=== PATIENT | female | born 1970 | race Caucasian/White ===

== ENCOUNTER 2017-10-26 19:09 | Emergency (ER) | payer SELFPAY ==
[2017-10-26] MEDS ORDERED: HYDROCODONE/APAP 10/325 TAB ONE (19:59)
[2017-10-26] MEDS ORDERED: DOXYCYCLINE 100 MG CAP PO ONE (19:59)
[2017-10-26] MEDS ORDERED: SMZ./TMP. 800/160 MG TABLET ONE (19:59)
--- NOTE | 2017-10-26 20:01 | ER ---
Nurse's Notes [facility] Name: Jennifer Caicedo Age: 47 yrs Sex: Female : 1970 Arrival Date: 10/26/2017 Time: 19:13 Bed 14 Private MD: Diagnosis: Insect bite (nonvenomous) of forearm;Insect bite (nonvenomous) of lower leg;Insect bite (nonvenomous) of other part of head Presentation: 10/26 19:20 Presenting complaint: Patient states: She noticed a bug bite yesterday on her right ea eye, right forearm and left upper leg. Pt states "my had a bug bite two days ago that looked similar" Pt reports fever and blurry vision to right eye. Presenting complaint:. Transition of care: patient was not received from another setting of care. Onset of symptoms was October 26, 2017. Risk Assessment: Do you want to hurt yourself or someone else? Patient reports no desire to harm self or others. Initial Sepsis Screen: Does the patient meet any 2 criteria? No. Patient's initial sepsis screen is negative. Does the patient have a suspected source of infection? No. Patient's initial sepsis screen is negative. Care prior to arrival: None. 19:20 Method Of Arrival: Ambulatory ea 19:20 Acuity: SOTO 4 ea Triage Assessment: 19:23 Bite description: bite sustained to right eye, right arm and left leg. General: Appears ea uncomfortable, Behavior is calm, cooperative, appropriate for age. General: pt reports nausea, fever and blurry vision. Pain: Complains of pain in right eye, right arm and left leg Pain currently is 7 out of 10 on a pain scale. GI: Reports nausea. 19:24 Bite description: bite sustained to right cheek, palmar aspect of right forearm and jd3 left quadriceps by a spider, animal information: vaccination(s) is not applicable. 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 - Social history:: Smoking status: Patient uses tobacco products, smokes one pack cigarettes per day. - Ebola Screening: : No symptoms or risks identified at this time. - Family history:: not pertinent. Screenin:25 Abuse screen: Denies threats or abuse. Nutritional screening: No deficits noted. ea Tuberculosis screening: No symptoms or risk factors identified. 20:21 Fall Risk None identified. jd3 Assessment: 19:21 General: Appears uncomfortable, Behavior is cooperative, anxious. Pain: Complains of jd3 pain in right cheek, palmar aspect of right forearm and left quadriceps Quality of pain is described as aching, pressure. Neuro: Level of Consciousness is awake, alert, obeys commands, Oriented to person, place, time, situation, Appropriate for age. Cardiovascular: Heart tones S1 S2 present Capillary refill < 3 seconds Patient's skin is warm and dry. Respiratory: Airway is patent Respiratory effort is even, unlabored, Respiratory pattern is regular, symmetrical, Breath sounds are clear bilaterally. GI: Abdomen is round Bowel sounds present X 4 quads. Abd is soft and non tender X 4 quads. Reports nausea. : No signs and/or symptoms were reported regarding the genitourinary system. EENT: No signs and/or symptoms were reported regarding the EENT system. Derm: Skin is intact, Skin is dry, Skin is normal, Skin temperature is warm. Musculoskeletal: Circulation, motion, and sensation intact. Range of motion: intact in all extremities. Injury Description: Bite sustained to right cheek, palmar aspect of right forearm and left quadriceps caused by a spider, is from insect. 20:20 Reassessment: Patient appears in no apparent distress at this time. Patient and/or jd3 family updated on plan of care and expected duration. Pain level reassessed. Patient is alert, oriented x 3, equal unlabored respirations, skin warm/dry/pink. pt reported understanding of discharge instructions, even and steady gait upon discharge. Vital Signs: 19:25 BP 172 / 105; Pulse 97; Resp 18; Temp 99.7; Pulse Ox 99% on R/A; Weight 72.57 kg; ea Height 5 ft. 7 in. (170.18 cm); Pain 7/10; 19:25 Body Mass Index 25.06 (72.57 kg, 170.18 cm) ea ED Course: 19:13 Patient arrived in ED. am2 19:15 Wayne Bedoya MD is Attending Physician. kirstin 19:21 Jermain Sanders, RN is Primary Nurse. jd3 19:22 Triage completed. ea 19:24 Patient has correct armband on for positive identification. Bed in low position. Call jd3 light in reach. Side rails up X 1. Adult w/ patient. 19:25 Arm band placed on right wrist. Patient placed in an exam room, on a stretcher. ea 20:20 No provider procedures requiring assistance completed. Patient did not have IV access jd3 during this emergency room visit. Administered Medications: 20:00 Drug: Doxycycline 200 mg Route: PO; jd3 20:19 Follow up: Response: Medication administered at discharge. jd3 20:01 Drug: Bactrim (160 mg-800 mg (DS) 1 tablet Route: PO; jd3 20:19 Follow up: Response: Medication administered at discharge. jd3 20:01 Drug: Clarks 10 mg-325 mg 1 tabs Route: PO; jd3 20:19 Follow up: Response: Medication administered at discharge. jd3 Point of Care Testing: Blood Glucose: 19:52 Blood Glucose: 86 mg/dL; jd3 Ranges: Outcome: 20:00 Discharge ordered by . kirstin 20:20 Discharged to home ambulatory, with family. jd3 20:20 Condition: stable 20:20 Discharge instructions given to patient, family, Instructed on discharge instructions, follow up and referral plans. medication usage, Demonstrated understanding of instructions, follow-up care, medications, Prescriptions given X 3. 20:21 Patient left the ED. jd3 Signatures: Wayne Bedoya MD MD cha Moreno, Amanda Isabel Huang RN RN Jermain Greco, RN RN jd3
--- NOTE | 2017-10-26 20:01 | EDPHYS ---
Physician Documentation [facility] Name: Jennifer Caicedo Age: 47 yrs Sex: Female : 1970 Arrival Date: 10/26/2017 Time: 19:13 Bed 14 Private MD: ED Physician Wayne Bedoya HPI: 10/26 19:53 This 47 yrs old Female presents to ER via Ambulatory with complaints of kirstin Insect Bite. 19:53 The patient was bitten on the face, right arm and left leg. Onset: The symptoms/episode kirstin began/occurred 3 day(s) ago. The patient presents with cellulitis of the face, right arm and left leg. Description: The affected area is small, localized, erythematous. Possible cause(s): spider bite. Associated signs and symptoms: Pertinent positives: swelling. 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 - Social history:: Smoking status: Patient uses tobacco products, smokes one pack cigarettes per day. - Ebola Screening: : No symptoms or risks identified at this time. - Family history:: not pertinent. ROS: 19:53 Constitutional: Negative for fever, chills, and weight loss, Eyes: Negative for injury, kirstin pain, redness, and discharge, ENT: Negative for injury, pain, and discharge, Neck: Negative for injury, pain, and swelling, Cardiovascular: Negative for chest pain, palpitations, and edema, Respiratory: Negative for shortness of breath, cough, wheezing, and pleuritic chest pain, Abdomen/GI: Negative for abdominal pain, nausea, vomiting, diarrhea, and constipation, Back: Negative for injury and pain, : Negative for injury, bleeding, discharge, and swelling, MS/Extremity: Negative for injury and deformity, Neuro: Negative for headache, weakness, numbness, tingling, and seizure, Psych: Negative for depression, anxiety, suicide ideation, homicidal ideation, and hallucinations, Allergy/Immunology: Negative for hives, rash, and allergies, Endocrine: Negative for neck swelling, polydipsia, polyuria, polyphagia, and marked weight changes, Hematologic/Lymphatic: Negative for swollen nodes, abnormal bleeding, and unusual bruising. 19:53 Skin: Positive for cellulitis. Exam: 19:53 Constitutional: This is a well developed, well nourished patient who is awake, alert, kirstin and in no acute distress. Head/Face: Normocephalic, atraumatic. Eyes: Pupils equal round and reactive to light, extra-ocular motions intact. Lids and lashes normal. Conjunctiva and sclera are non-icteric and not injected. Cornea within normal limits. Periorbital areas with no swelling, redness, or edema. ENT: Nares patent. No nasal discharge, no septal abnormalities noted. Tympanic membranes are normal and external auditory canals are clear. Oropharynx with no redness, swelling, or masses, exudates, or evidence of obstruction, uvula midline. Mucous membranes moist. Neck: Trachea midline, no thyromegaly or masses palpated, and no cervical lymphadenopathy. Supple, full range of motion without nuchal rigidity, or vertebral point tenderness. No Meningismus. Chest/axilla: Normal chest wall appearance and motion. Nontender with no deformity. No lesions are appreciated. Cardiovascular: Regular rate and rhythm with a normal S1 and S2. No gallops, murmurs, or rubs. Normal PMI, no JVD. No pulse deficits. Respiratory: Lungs have equal breath sounds bilaterally, clear to auscultation and percussion. No rales, rhonchi or wheezes noted. No increased work of breathing, no retractions or nasal flaring. Abdomen/GI: Soft, non-tender, with normal bowel sounds. No distension or tympany. No guarding or rebound. No evidence of tenderness throughout. Back: No spinal tenderness. No costovertebral tenderness. Full range of motion. Female : Normal external genitalia. MS/ Extremity: Pulses equal, no cyanosis. Neurovascular intact. Full, normal range of motion. Neuro: Awake and alert, GCS 15, oriented to person, place, time, and situation. Cranial nerves II-XII grossly intact. Motor strength 5/5 in all extremities. Sensory grossly intact. Cerebellar exam normal. Normal gait. Psych: Awake, alert, with orientation to person, place and time. Behavior, mood, and affect are within normal limits. 19:53 Skin: cellulitis, injury. Vital Signs: 19:25 BP 172 / 105; Pulse 97; Resp 18; Temp 99.7; Pulse Ox 99% on R/A; Weight 72.57 kg; ea Height 5 ft. 7 in. (170.18 cm); Pain 7/10; 19:25 Body Mass Index 25.06 (72.57 kg, 170.18 cm) ea MDM: 19:15 Patient medically screened. [facility] 19:53 Data reviewed: vital signs, nurses notes, lab test result(s). [facility] 10/26 19:53 Order name: Blood Glucose Level; Complete Time: :53 [facility] Administered Medications: 20:00 Drug: Doxycycline 200 mg Route: PO; jd3 20:19 Follow up: Response: Medication administered at discharge. jd3 20:01 Drug: Bactrim (160 mg-800 mg (DS) 1 tablet Route: PO; jd3 20:19 Follow up: Response: Medication administered at discharge. jd3 20:01 Drug: Aurora 10 mg-325 mg 1 tabs Route: PO; jd3 20:19 Follow up: Response: Medication administered at discharge. jd3 Point of Care Testing: Blood Glucose: 19:52 Blood Glucose: 86 mg/dL; jd3 Ranges: Critical Glucose Levels:Adult <50 mg/dl or >400 mg/dl <40 mg/dl or >180 mg/dl Disposition: 10/26/17 20:00 Discharged to Home. Impression: Insect bite (nonvenomous) of forearm, Insect bite (nonvenomous) of lower leg, Insect bite (nonvenomous) of other part of head. - Condition is Stable. - Discharge Instructions: Insect Bite, [id number], Insect Bite, Cellulitis, Cellulitis, [id number]. - Prescriptions for Benadryl 25 mg Oral Capsule - take 1 capsule by ORAL route every 6 hours As needed; 30 tablet. Doxycycline Hyclate 100 mg Oral Tablet - take 1 tablet by ORAL route every 12 hours; 20 tablet. Bactrim DS 800- 160 mg Oral Tablet - take 1 tablet by ORAL route every 12 hours for 10 days; 20 tablet. - Medication Reconciliation Form, Thank You Letter, Antibiotic Education, Prescription Opioid Use form. - Follow up: Private Physician; When: 2 - 3 days; Reason: Recheck today's complaints, Continuance of care, Re-evaluation by your physician. - Problem is new. - Symptoms have improved. Signatures: Wayne Bedoya MD MD cha Antunez, Elena RN Jermain Carroll ea, RN RN jd3 Corrections: (The following items were deleted from the chart) 20:21 20:00 10/26/2017 20:00 Discharged to Home. Impression: Insect bite (nonvenomous) of jd3 forearm; Insect bite (nonvenomous) of lower leg; Insect bite (nonvenomous) of other part of head. Condition is Stable. Forms are Medication Reconciliation Form, Thank You Letter, Antibiotic Education, Prescription Opioid Use. Follow up: Private Physician; When: 2 - 3 days; Reason: Recheck today's complaints, Continuance of care, Re-evaluation by your physician. Problem is new. Symptoms have improved. kirstin
== END 2017-10-26 20:21 | disposition home or self-care (01) ==
LOC: ER 19:09
DX: S50.861A Insect bite (nonvenomous) of right forearm, initial encounter (principal); S00.86XA Insect bite (nonvenomous) of other part of head, initial encounter; S80.862A Insect bite (nonvenomous), left lower leg, initial encounter; F17.210 Nicotine dependence, cigarettes, uncomplicated; W57.XXXA Bitten or stung by nonvenomous insect and other nonvenomous arthropods, initial encounter; Y93.9 Activity, unspecified; Y92.9 Unspecified place or not applicable; Y99.9 Unspecified external cause status
CPT/HCPCS: 82962; 99283

== ENCOUNTER 2019-01-09 22:51 | Emergency (ER) | payer SELFPAY ==
[2019-01-09 23:13] LABS: Absolute Lymphocytes (CBC) 3.1 K/uL (0.7-4.9); Basophils % 0.6 % (0-1.3); Hematocrit 36.7 % (36.0-45.0); MPV 8.4 fL (7.6-11.3)
[2019-01-09 23:30] LABS: ALT/SGPT 20 U/L (12-78); AST/SGOT 9 U/L (15-37); Albumin 3.3 g/dL (3.4-5.0); Alkaline Phosphatase 87 U/L (45-117); BUN Blood Urea Nitrogen 18 mg/dL (7-18); Bicarbonate 25 mmol/L (21-32); Bilirubin Direct < 0.1 mg/dL (0-0.2); Bilirubin Total 0.2 mg/dL (0.2-1.0); Glucose Level 131 mg/dL (74-106); Lipase 283 U/L (73-393); Potassium 3.5 mmol/L (3.5-5.1); Protein, Total 6.5 g/dL (6.4-8.2); Sodium Level 144 mmol/L (136-145)
[2019-01-09] MEDS ORDERED: HYDROCODONE/APAP 5/325 MG TAB ONE (23:35)
[2019-01-10 00:05] LABS: Urine Culture Reflex Order REFLEXED
--- NOTE | 2019-01-10 00:08 | ER ---
Nurse's Notes [facility] Name: Jennifer Caicedo Age: 48 yrs Sex: Female : 1970 Arrival Date: 01/09/2019 Time: 22:54 Bed 13 Private MD: Diagnosis: Upper abdominal pain, unspecified;Urinary tract infection, site not specified Presentation: 01/09 22:55 Presenting complaint: EMS states: complaints of LUQ pain started 3 days ago like a rr5 sharp stabbing pain. she feels her stomach is distended. 22:55 Transition of care: patient was not received from another setting of care. Onset of rr5 symptoms was January 06, 2019. Risk Assessment: Do you want to hurt yourself or someone else? Patient reports no desire to harm self or others. Initial Sepsis Screen: Does the patient meet any 2 criteria? No. Patient's initial sepsis screen is negative. Does the patient have a suspected source of infection? No. Patient's initial sepsis screen is negative. Care prior to arrival: None. 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 - Social history:: Smoking status: Patient uses tobacco products, smokes one-half pack cigarettes per day, Patient/guardian denies using alcohol, street drugs. - Family history:: not pertinent. - Ebola Screening: : Patient negative for fever greater than or equal to 101.5 degrees Fahrenheit, and additional compatible Ebola Virus Disease symptoms Patient denies exposure to infectious person Patient denies travel to an Ebola-affected area in the 21 days before illness onset. - Hospitalizations: : No recent hospitalization is reported. Screenin:30 Abuse screen: Denies threats or abuse. Denies injuries from another. Nutritional rr5 screening: No deficits noted. Tuberculosis screening: No symptoms or risk factors identified. Fall Risk IV access (20 points). Total Gonzalez Fall Scale indicates No Risk (0-24 pts). Assessment: 23:00 General: Appears in no apparent distress. uncomfortable, Behavior is calm, cooperative, rr5 appropriate for age. 23:00 Pain: Complains of pain in left upper quadrant Pain does not radiate. Pain currently is rr5 10 out of 10 on a pain scale. Quality of pain is described as sharp, stabbing, Pain began gradually, 2-3 days ago. Is intermittent. Neuro: Level of Consciousness is awake, alert, obeys commands, Oriented to person, place, time, situation, Appropriate for age. Cardiovascular: Capillary refill < 3 seconds Patient's skin is warm and dry. Respiratory: Airway is patent Respiratory effort is even, unlabored, Respiratory pattern is regular, symmetrical. GI: Abdomen is round Bowel sounds present X 4 quads. Abd is soft and non tender Reports upper abdominal pain. : No signs and/or symptoms were reported regarding the genitourinary system. EENT: No signs and/or symptoms were reported regarding the EENT system. Derm: Skin Skin temperature is warm. Musculoskeletal: Circulation, motion, and sensation intact. Capillary refill < 3 seconds. 01/10 00:00 Reassessment: Patient appears in no apparent distress at this time. Patient is alert, rr5 oriented x 3, equal unlabored respirations, skin warm/dry/pink. Patient states feeling better. Patient states symptoms have improved. 00:25 Reassessment: Patient appears in no apparent distress at this time. Patient is alert, rr5 oriented x 3, equal unlabored respirations, skin warm/dry/pink. discharge instruction given and explained without complaints made, verbalized understandiung. escorted by SELAM. Vital Signs: 01/09 22:58 BP 144 / 97; Pulse 93; Resp 17; Temp 98.7; Pulse Ox 100% ; Weight 74.84 kg; Height 5 rr5 ft. 7 in. (170.18 cm); Pain 10/10; 23:53 BP 149 / 94; Pulse 89; Resp 16; Pulse Ox 99% on R/A; mt 01/10 00:20 BP 125 / 85; Pulse 80; Resp 17; Temp 98.1; Pulse Ox 100% ; Pain 5/10; rr5 01/09 22:58 Body Mass Index 25.84 (74.84 kg, 170.18 cm) rr5 ED Course: 01/09 22:54 Patient arrived in ED. rn 22:54 Ankur Aguirre MD is Attending Physician. rn 22:55 Piotr Lopez, CLAYTON is Primary Nurse. rr5 22:58 Triage completed. rr5 23:00 Patient has correct armband on for positive identification. Bed in low position. Call rr5 light in reach. 23:00 Pulse ox on. NIBP on. rr5 23:01 Inserted saline lock: 22 gauge in right antecubital area, using aseptic technique. or Blood collected. 23:02 Arm band placed on left wrist. rr5 23:09 EKG done, by ED staff, reviewed by Ankur Aguirre MD. or 23:30 No provider procedures requiring assistance completed. rr5 01/10 00:25 IV discontinued, intact, bleeding controlled, No redness/swelling at site. Pressure rr5 dressing applied. Administered Medications: 01/09 23:30 Drug: Milburn 5 mg-325 mg 2 tabs {Note: rass 0.} Route: PO; rr5 01/10 00:27 Follow up: Response: No adverse reaction; Pain is decreased; RASS: Alert and Calm (0) rr5 00:10 Drug: Nitrofurantoin 100 mg Route: PO; rr5 00:26 Follow up: Response: Medication administered at discharge. rr5 Outcome: 00:06 Discharge ordered by . rn 00:25 Discharged to Law Enforcement rr5 00:25 Condition: stable 00:25 Discharge instructions given to patient, Instructed on discharge instructions, follow up and referral plans. medication usage, Demonstrated understanding of instructions, follow-up care, medications, Prescriptions given X 1. 00:27 Patient left the ED. rr5 Addendum: 01/13/2019 07:36 Addendum: Culture Results: Positive urine culture. No further action required. Bacteria s s sensitive to prescribed antibiotic. Signatures: Ankur Aguirre MD MD rn Smirch, Shelby, RN RN ss [facility] Piotr Lopez, CLAYTON RN rr5
[2019-01-10 00:09] LABS: Urine Blood NEGATIVE (NEG); Urine Glucose NEGATIVE (NEG); Urine Protein NEGATIVE (NEG); Urine Specific Gravity 1.025 (1.005-1.030)
--- NOTE | 2019-01-10 00:09 | EDPHYS ---
Physician Documentation [facility] Name: Jennifer Caicedo Age: 48 yrs Sex: Female : 1970 Arrival Date: 01/09/2019 Time: 22:54 Bed 13 Private MD: ED Physician Ankur Aguirre HPI: 01/09 22:55 This 48 yrs old Female presents to ER via Unassigned with complaints of LUQ rn abd pain. 22:55 The patient presents with abdominal pain in the left upper quadrant. Onset: The rn symptoms/episode began/occurred 3 day(s) ago. The symptoms do not radiate. Associated signs and symptoms: none. Pertinent negatives: nausea and vomiting, anorexia, blood in stools, constipation, diarrhea, dysuria, fever, hematuria, shortness of breath, vomiting. Modifying factors: The symptoms are alleviated by nothing, the symptoms are aggravated by touching the area. Severity of pain: At its worst the pain was mild in the emergency department the pain is unchanged. The patient has not experienced similar symptoms in the past. Reports 3 days of LUQ abd pain, came in today after arrested, states pain got worse and that is why she sought care, no chest pain/sob/cough/palpitations/vomiting/diarrhea. . 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 - Social history:: Smoking status: Patient uses tobacco products, smokes one-half pack cigarettes per day, Patient/guardian denies using alcohol, street drugs. - Family history:: not pertinent. - Ebola Screening: : Patient negative for fever greater than or equal to 101.5 degrees Fahrenheit, and additional compatible Ebola Virus Disease symptoms Patient denies exposure to infectious person Patient denies travel to an Ebola-affected area in the 21 days before illness onset. - Hospitalizations: : No recent hospitalization is reported. ROS: 22:55 Constitutional: Negative for fever, chills, and weight loss, Eyes: Negative for injury, rn pain, redness, and discharge, Neck: Negative for injury, pain, and swelling, Cardiovascular: Negative for chest pain, palpitations, and edema, Respiratory: Negative for shortness of breath, cough, wheezing, and pleuritic chest pain, Abdomen/GI: Negative for nausea, vomiting, diarrhea, and constipation, Back: Negative for injury and pain, : Negative for injury, bleeding, discharge, and swelling, MS/Extremity: Negative for injury and deformity, Skin: Negative for injury, rash, and discoloration, Neuro: Negative for headache, weakness, numbness, tingling, and seizure. Exam: 22:55 Constitutional: This is a well developed, well nourished patient who is awake, alert, rn and in no acute distress. Head/Face: Normocephalic, atraumatic. ENT: MMM Cardiovascular: Regular rate and rhythm. No pulse deficits. Respiratory: Lungs have equal breath sounds bilaterally, clear to auscultation. No increased work of breathing, no retractions or nasal flaring. Abdomen/GI: Soft, + LUQ tenderness, no rebound MS/ Extremity: Pulses equal, no cyanosis. Neurovascular intact. Full, normal range of motion. Equal circumference. Neuro: Awake and alert, GCS 15, oriented to person, place, time, and situation. Cranial nerves II-XII grossly intact. Motor strength 5/5 in all extremities. Sensory grossly intact. Cerebellar exam normal. Able to walk from stretcher to bed. Vital Signs: 22:58 BP 144 / 97; Pulse 93; Resp 17; Temp 98.7; Pulse Ox 100% ; Weight 74.84 kg; Height 5 rr5 ft. 7 in. (170.18 cm); Pain 10/10; 23:53 BP 149 / 94; Pulse 89; Resp 16; Pulse Ox 99% on R/A; mt 01/10 00:20 BP 125 / 85; Pulse 80; Resp 17; Temp 98.1; Pulse Ox 100% ; Pain 5/10; rr5 01/09 22:58 Body Mass Index 25.84 (74.84 kg, 170.18 cm) rr5 MDM: 01/09 22:54 Patient medically screened. rn 01/10 00:04 Differential diagnosis: gastritis, gastroesophageal reflux disease, non-specific abd rn pain, pancreatitis, Peptic Ulcer Disease, Pyelonephritis, urinary tract infection. Data reviewed: vital signs, nurses notes, lab test result(s), and as a result, I will discharge patient. Counseling: I had a detailed discussion with the patient and/or guardian regarding: the historical points, exam findings, and any diagnostic results supporting the discharge/admit diagnosis, lab results, the need for outpatient follow up, to return to the emergency department if symptoms worsen or persist or if there are any questions or concerns that arise at home. Special discussion: I discussed with the patient/guardian in detail that at this point there is no indication for admission to the hospital. It is understood, however, that if the symptoms persist or worsen the patient needs to return immediately for re-evaluation. 01/09 22:54 Order name: Basic Metabolic Panel; Complete Time: 23:44 01/09 22:54 Order name: CBC with Diff; Complete Time: : 01/09 22:54 Order name: Hepatic Function; Complete Time: 23:44 01/09 22:54 Order name: Lipase; Complete Time: 23: 01/09 22:54 Order name: Urine Microscopic Only 01/09 23:30 Order name: Urine Dipstick--Ancillary (enter results) [facility] 01/09 23:30 Order name: Urine --Ancillary (enter results) [facility] 01/10 00:24 Order name: Urine Culture [facility] 01/09 22:55 Order name: EKG; Complete Time: 22:56 01/09 22:54 Order name: IV Saline Lock; Complete Time: 23: 01/09 22:54 Order name: Labs collected and sent; Complete Time: 23: 01/09 22:54 Order name: Urine Test (obtain specimen); Complete Time: 23: 01/09 22:54 Order name: Urine Dipstick-Ancillary (obtain specimen); Complete Time: 23: 01/09 22:55 Order name: EKG - Nurse/Tech; Complete Time: 23:09 rn Administered Medications: 01/09 23:30 Drug: Hutchinson 5 mg-325 mg 2 tabs {Note: rass 0.} Route: PO; rr5 01/10 00:27 Follow up: Response: No adverse reaction; Pain is decreased; RASS: Alert and Calm (0) rr5 00:10 Drug: Nitrofurantoin 100 mg Route: PO; rr5 00:26 Follow up: Response: Medication administered at discharge. rr5 Disposition: 01/10/19 00:06 Discharged to Home. Impression: Upper abdominal pain, unspecified, Urinary tract infection, site not specified. - Condition is Stable. - Discharge Instructions: Abdominal Pain, Adult, Urinary Tract Infection, Adult. - Prescriptions for Macrobid 100 mg Oral Capsule - take 1 capsule by ORAL route every 12 hours for 7 days; 14 capsule. - Medication Reconciliation Form, Thank You Letter, Antibiotic Education, Prescription Opioid Use form. - Follow up: Private Physician; When: As needed; Reason: Recheck today's complaints, Re-evaluation by your physician. - Problem is new. - Symptoms have improved. Signatures: Dispatcher [employer] EDMS Ankur Aguirre MD MD rn Roque, Raymond, RN RN rr5 Corrections: (The following items were deleted from the chart) 00:27 00:06 01/10/2019 00:06 Discharged to Home. Impression: Upper abdominal pain, rr5 unspecified; Urinary tract infection, site not specified. Condition is Stable. Forms are Medication Reconciliation Form, Thank You Letter, Antibiotic Education, Prescription Opioid Use. Follow up: Private Physician; When: As needed; Reason: Recheck today's complaints, Re-evaluation by your physician. Problem is new. Symptoms have improved. rn
[2019-01-10 00:15] LABS: Urine Bacteria LOADED /HPF (<20); Urine RBC NONE SEEN /HPF (NONE SEEN)
[2019-01-10 02:46] VITALS: BP 125/85; TEMP 98.1; O2SAT 100
--- NOTE | 2019-01-10 09:22 | EKG ---
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
== END 2019-01-10 00:27 | disposition home or self-care (01) ==
LOC: ER 22:51
DX: N39.0 Urinary tract infection, site not specified (principal); I95.9 Hypotension, unspecified; F17.210 Nicotine dependence, cigarettes, uncomplicated
CPT/HCPCS: 36415; 80048; 80076; 81003; 81015; 81025; 83690; 85025; 87077; 87086; 87088; 87186; 93005; 99284

== ENCOUNTER 2020-11-30 12:52 | Emergency (ER) | payer OTHER, SELFPAY ==
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
--- NOTE | 2020-11-30 13:24 | EDPHYS ---
Physician Documentation [facility] Name: Jennifer Caicedo Age: 50 yrs Sex: Female : 1970 Arrival Date: 11/30/2020 Time: 12:56 Bed Waiting Private MD: ED Physician Jose Manuel Aguilar HPI: 11/30 13:23 This 50 yrs old Female presents to ER via Ambulatory with complaints of Wasp pm1 sting. 13:23 The patient or guardian reports pain, swelling. Patient presents to the ER with pm1 complaints of swelling to left middle finger due to the presence of a ring and a wasp sting, yellow jacket to her left middle finger. Patient was stung by wasp yesterday.. 13:23 The complaints affect the left middle finger. Context: The problem was sustained pm1 outdoors, resulted from Insect sting. Onset: The symptoms/episode began/occurred yesterday. Modifying factors: The symptoms are alleviated by nothing, the symptoms are aggravated by Presence of ring. Associated signs and symptoms: Pertinent negatives: cyanosis distally, decreased sensation distally, numbness distally, tingling distally. Severity of symptoms: in the emergency department the symptoms are actually worse. The patient has not experienced similar symptoms in the past. The patient has not recently seen a physician. Historical: - Allergies: 13:17 No Known Allergies; ss - PMHx: 13:17 Bipolar disorder; hypotension; ss - Immunization history:: Adult Immunizations up to date. - Social history:: Smoking status: Patient reports the use of cigarette tobacco products, smokes one-half pack cigarettes per day. ROS: 13:23 Constitutional: Negative for fever, chills, and weight loss, Cardiovascular: Negative pm1 for chest pain, palpitations, and edema, Respiratory: Negative for shortness of breath, cough, wheezing, and pleuritic chest pain. 13:23 Neuro: Negative for headache, weakness, numbness, tingling, and seizure. 13:23 MS/extremity: Positive for pain, swelling, of the left middle finger, Negative for decreased range of motion, deformity. 13:23 Skin: Positive for swelling, of the left middle finger and dorsum of left hand. 13:23 All other systems are negative. Exam: 13:23 Constitutional: This is a well developed, well nourished patient who is awake, alert, pm1 and in no acute distress. Head/Face: Normocephalic, atraumatic. 13:23 Eyes: Exam is negative for acute changes, Extraocular movements: no acute changes, Conjunctiva: no acute changes, no injection. 13:23 ENT: Mouth: Lips: normal, Oral mucosa: normal, pink and intact, moist. 13:23 Cardiovascular: Rate: normal, Rhythm: regular, Pulses: no pulse deficits are appreciated. 13:23 Respiratory: Exam negative for acute changes, respiratory distress, shortness of breath. 13:23 Musculoskeletal/extremity: Extremities: grossly normal except: noted in the left middle finger: swelling, There is no evidence of Stinger or foreign body, Circulation is intact in all extremities. the left hand Sensation intact. 13:23 Skin: Appearance: swelling, noted on the dorsum of left hand and left middle finger, that are mild. Vital Signs: 13:02 BP 132 / 89; Pulse 103; Resp 16; Temp 97.9(TE); Pulse Ox 98% on R/A; Weight 62.14 kg; ss Height 5 ft. 7 in. (170.18 cm); Pain 7/10; 13:02 Body Mass Index 21.46 (62.14 kg, 170.18 cm) ss Procedures: 13:19 Performed Ring removed from left middle finger using ring cutters. Patient tolerated pm1 procedure well. Neurovascular status intact pre and post removal of ring. MDM: 13:19 Data reviewed: vital signs. Data interpreted: Pulse oximetry: on room air is 98 %. pm1 Interpretation: normal. Counseling: I had a detailed discussion with the patient and/or guardian regarding: the historical points, exam findings, and any diagnostic results supporting the discharge/admit diagnosis, the need for outpatient follow up, to return to the emergency department if symptoms worsen or persist or if there are any questions or concerns that arise at home. 13:23 Patient medically screened. pm1 Administered Medications: 14:13 Not Given (Pt left prior to recieving medicationn): Benadryl (diphenhydrAMINE) 25 mg PO ss once Disposition: 18:36 Co-signature as Attending Physician, Jose Manuel Aguilar MD I agree with the assessment and tw4 plan of care. Disposition Summary: 11/30/20 13:23 Discharge Ordered Location: Home pm1 Problem: new pm1 Symptoms: have improved pm1 Condition: Stable pm1 Diagnosis - Insect bite (nonvenomous) of hand - Left hand pm1 Followup: pm1 - With: Emergency Department - When: As needed - Reason: Worsening of condition Followup: pm1 - With: Private Physician - When: 2 - 3 days - Reason: Recheck today's complaints, Continuance of care, Re-evaluation by your physician Discharge Instructions: - Discharge Summary Sheet pm1 - Insect Bite, Adult pm1 Forms: - Medication Reconciliation Form pm1 - Thank You Letter pm1 - Antibiotic Education pm1 - Prescription Opioid Use pm1 Signatures: Natalia Solano, RN RN ss Fili Lopes, [employer] AUTOMOTIVE QUALITY ENGINEER pm1 Jose Manuel Aguilar MD MD tw4 Corrections: (The following items were deleted from the chart) 13:46 13:23 This 50 yrs old Female presents to ER via Ambulatory with complaints of pm1 Bee Sting. pm1
--- NOTE | 2020-11-30 13:24 | ER ---
Nurse's Notes [facility] Name: Jennifer Caicedo Age: 50 yrs Sex: Female : 1970 Arrival Date: 11/30/2020 Time: 12:56 Bed Waiting Private MD: Diagnosis: Insect bite (nonvenomous) of hand-Left hand Presentation: 11/30 13:02 Chief complaint: Patient states: Bee sting to L third finger yesterday. Pt now cannot ss get her ring off her finger. Coronavirus screen: Client denies travel out of the [place] in the last 14 days. Ebola Screen: Patient denies exposure to infectious person. Patient denies travel to an Ebola-affected area in the 21 days before illness onset. Onset: The symptoms/episode began/occurred 1 day(s) ago. Anaphylaxis evaluation, no signs or symptoms of anaphylaxis were noted. Initial Sepsis Screen: Does the patient meet any 2 criteria? No. Patient's initial sepsis screen is negative. Does the patient have a suspected source of infection? No. Patient's initial sepsis screen is negative. Risk Assessment: Do you want to hurt yourself or someone else? Patient reports no desire to harm self or others. Onset of symptoms was November 29, 2020. 13:02 Method Of Arrival: Ambulatory ss 13:02 Acuity: SOTO 5 ss Historical: - Allergies: 13:17 No Known Allergies; ss - PMHx: 13:17 Bipolar disorder; hypotension; ss - Immunization history:: Adult Immunizations up to date. - Social history:: Smoking status: Patient reports the use of cigarette tobacco products, smokes one-half pack cigarettes per day. Vital Signs: 13:02 BP 132 / 89; Pulse 103; Resp 16; Temp 97.9(TE); Pulse Ox 98% on R/A; Weight 62.14 kg; ss Height 5 ft. 7 in. (170.18 cm); Pain 7/10; 13:02 Body Mass Index 21.46 (62.14 kg, 170.18 cm) ED Course: 12:56 Patient arrived in ED. mr 13:17 Triage completed. ss 13:17 Arm band placed on right wrist. ss 13:19 Fili Lopes NP is PHCP. pm1 13:19 Jose Manuel Aguilar MD is Attending Physician. pm1 14:13 No provider procedures requiring assistance completed. Patient did not have IV access ss during this emergency room visit. Administered Medications: 14:13 Not Given (Pt left prior to recieving medicationn): Benadryl (diphenhydrAMINE) 25 mg PO ss once Outcome: 13:23 Discharge ordered by . pm1 14:13 Discharged to home ambulatory. ss 14:13 Condition: improved 14:13 Discharge instructions given to patient, Instructed on discharge instructions, follow up and referral plans. 14:13 Patient left the ED. ss Signatures: Jada Arthur Shelby, RN RN ss Fili Lopes, SEMICONDUCTOR LAB TECHNICIAN SEMICONDUCTOR LAB TECHNICIAN pm1
[2020-11-30] MEDS ORDERED: DIPHENHYDRAMINE 25 MG TAB/CAP ONE (14:32)
== END 2020-11-30 14:13 | disposition home or self-care (01) ==
LOC: ER 12:52
DX: S60.463A Insect bite (nonvenomous) of left middle finger, initial encounter (principal); F17.210 Nicotine dependence, cigarettes, uncomplicated
CPT/HCPCS: 99281